=== PATIENT | male | born 1975 ===

== ENCOUNTER 2017-04-17 00:43 | Emergency (ER) | payer SELFPAY ==
[2017-04-17 00:49] VITALS: BP 151/109
[2017-04-17 01:25] LABS: Basophils % (Auto) 1.3 % (0.0-1.8); Eosinophils % (Auto) 0.1 % (0.0-4.3); Hematocrit 38.5 % (35.5-45.6); Hemoglobin 12.7 gm/dl (11.8-15.2); Mean Corpuscular HGB Conc 33 % (32-34); Mean Corpuscular Hemoglobin 31 pg (28-32); Mean Corpuscular Volume 95 fl (84-94); Red Blood Count 4.05 M/mm3 (3.65-5.03); Red Cell Distribution Width 13.3 % (13.2-15.2); White Blood Count 3.4 K/mm3 (4.5-11.0)
[2017-04-17 01:28] LABS: Platelet Count 62 K/mm3 (140-440)
[2017-04-17 01:38] LABS: Anion Gap 32 mmol/L; Blood Urea Nitrogen 11 mg/dL (9-20); Calcium 9.4 mg/dL (8.4-10.2); Carbon Dioxide 20 mmol/L (22-30); Chloride 84.3 mmol/L (98-107); Glucose 109 mg/dL (75-100); Potassium 4.3 mmol/L (3.6-5.0); Sodium 132 mmol/L (137-145)
--- NOTE | 2017-04-19 19:56 | ED Elopement Review ---
ED Pt Elopement review - Results review Lab results: Laboratory Tests 04/17/17 04/17/17 04/17/17 01:00 01:00 01:00 WBC 3.4 L RBC 4.05 Hgb 12.7 Hct 38.5 MCV 95 H MCH 31 MCHC 33 RDW 13.3 Plt Count 62 L Lymph % (Auto) 16.9 [place] % (Auto) 9.6 H Eos % (Auto) 0.1 Baso % (Auto) 1.3 Lymph # 0.6 L [place] # 0.3 Eos # 0.0 Baso # 0.0 Seg Neutrophils % 72.1 H Seg Neutrophils # 2.5 Sodium 132 L Potassium 4.3 Chloride 84.3 L Carbon Dioxide 20 L Anion Gap 32 BUN 11 Creatinine 0.5 L Estimated GFR > 60 BUN/Creatinine Ratio 22.00 Glucose 109 H Calcium 9.4 Plasma/Serum Alcohol < 0.01 - Call Back decision Pt Call Back Decision: No action required
== END 2017-04-17 09:12 | disposition left against medical advice (07) ==
LOC: ED 00:43
DX: R56.9 Unspecified convulsions (principal); Z53.21 Procedure and treatment not carried out due to patient leaving prior to being seen by health care provider
CPT/HCPCS: 36415; 80048; 85025; G0480; 80320